=== PATIENT | male | born 1950 | race Caucasian/White ===

== ENCOUNTER 2017-04-11 06:45 | Emergency (ER) | payer MEDICARE, OTHER ==
[~2017-04-11] VITALS: Ht 162.6 cm; Wt 87.0 kg
[2017-04-11 06:47] VITALS: Ht 162.6 cm; Wt 87.0 kg
[2017-04-11] MEDS ORDERED: SOD CHLORIDE 0.9% 1,000 ML IV STA (07:15)
[2017-04-11 07:40] LABS: ABNORMAL IP MESSAGE 1; BASOPHILS % 0.3 % (0.0-2.0); EOSINOPHILS % 0.1 % (0.0-7.0); HEMATOCRIT 38.8 % (42.0-52.0); HEMOGLOBIN 12.6 g/dl (14.0-18.0); LYMPHOCYTES # 0.3 10^3/ul (0.8-2.9); LYMPHOCYTES % 2.4 % (15.0-51.0); MEAN CORPUSCULAR HEMOGLOBIN 28.4 pg (29.0-33.0); MEAN CORPUSCULAR HGB CONC 32.5 g/dl (32.0-37.0); MEAN CORPUSCULAR VOLUME 87.6 fl (82.0-101.0); MONOCYTE # 0.6 10^3/ul (0.3-0.9); NEUTROPHIL # 12.8 10^3/ul (1.6-7.5); NEUTROPHILS % 92.7 % (39.0-77.0); PLATELET COUNT 212 10^3/UL (140-415); POSITIVE DIFF @See below; RED BLOOD COUNT 4.43 10^6/ul (4.70-6.10); RED CELL DISTRIBUTION WIDTH 14.5 % (11.5-14.5); WHITE BLOOD COUNT 13.8 10^3/ul (4.8-10.8)
[2017-04-11 08:03] LABS: ALBUMIN 3.5 g/dl (3.3-4.9); ALBUMIN/GLOBULIN RATIO 1.02; BILIRUBIN,INDIRECT 0.6 mg/dl (0-1.1); BILIRUBIN,TOTAL 0.6 mg/dl (0.2-1.3); CALCIUM 8.9 mg/dl (8.4-10.2); CREATININE 1.11 mg/dl (0.61-1.24); TOTAL PROTEIN 6.9 g/dl (6.1-8.1)
[2017-04-11 08:12] LABS: POTASSIUM 2.8 mmol/L (3.5-5.1)
[2017-04-11] MEDS ORDERED: POTASSIUM CHLORIDE (SR) 20 MEQ TAB PO STA (08:19)
[2017-04-11] MEDS ORDERED: POTASSIUM CHLORIDE 20 MEQ in SOD CHLORIDE 0.9% 100 ML IVPB ONE (08:30)
[2017-04-11 09:09] LABS: ADD UMIC YES; UR ASCORBIC ACID NEGATIVE (NEGATIVE); UR BILIRUBIN (Dip) NEGATIVE (NEGATIVE); UR BLOOD (Dip) 3+ mg/dL (NEGATIVE); UR CLARITY CLOUDY (CLEAR); UR COLOR RED (YELLOW); UR GLUCOSE (Dip) NEGATIVE (NEGATIVE); UR KETONES (Dip) NEGATIVE (NEGATIVE); UR LEUKOCYTE ESTERASE (Dip) 2+ Leu/ul (NEGATIVE); UR MUCUS FEW /HPF (NONE SEEN); UR NITRITE (Dip) NEGATIVE (NEGATIVE); UR NONSQUAMOUS EPITHELIAL CELL 1 /HPF (NONE SEEN); UR RBC > 182 /HPF (0-5); UR SPECIFIC GRAVITY (Dip) 1.014 (1.003-1.030); UR SQUAMOUS EPITHELIAL CELL FEW /HPF (FEW); UR TOTAL PROTEIN (Dip) 3+ mg/dl (NEGATIVE); UR UROBILINOGEN (Dip) 1+ mg/dL (NEGATIVE)
[2017-04-11] MEDS ORDERED: CEFTRIAXONE 1 GM/50 ML (PMX) 50 ML IVPB ONE (09:30)
[2017-04-11] MEDS ORDERED: VALS1TAB80 PO (10:40)
[2017-04-11] MEDS ORDERED: AMLO-147 PO (10:40)
[2017-04-11] MEDS ORDERED: POTA20TA15 PO (10:42)
[2017-04-11] MEDS ORDERED: LEVO750T8 PO (10:42)
--- NOTE | 2017-04-11 10:46 | ERD ---
ER Documentation Chief Complaint Date/Time DATE: 04/11/17 TIME: 10:43 Chief Complaint FROM HOME C/O WEAK AND DIZZY HPI This is a 67-year-old male who states that he got up at 2 and 5 AM this morning to urinate and he had some dysuria and felt weak. He said he had subjective fever at home but it was taken. No chest pain shortness of breath no abdominal pain vomiting diarrhea no headache no focal neurological complaints such as numbness or weakness no headaches. He said his urine had a very foul odor to it as well. ROS All systems reviewed and are negative except as per history of present illness. Medications Home Meds Active Scripts Potassium Chloride* (K-Dur*) 20 Meq Tab.prt.sr, 40 MEQ PO DAILY for 7 Days, TAB.SA Prov:KAREN SMYTH DO 04/11/17 Levofloxacin* (Levofloxacin*) 750 Mg Tablet, 750 MG PO DAILY for 10 Days, TAB Prov:KAREN SMYTH DO 04/11/17 Reported Medications Valsartan-Hydrochlorothiazide (Valsartan-HCTZ) 320-12.5 Mg Tablet, 1 TAB PO DAILY, #30 TAB 04/11/17 Amlodipine Besylate* (Amlodipine Besylate*) 10 Mg Tablet, 10 MG PO DAILY, #30 TAB 04/11/17 Allergies Allergies: Coded Allergies: No Known Allergy (Unverified , 04/11/17) PMhx/Soc Medical and Surgical Hx: pt denies Surgical Hx Hx Alcohol Use: No Hx Substance Use: No Hx Tobacco Use: No Smoking Status: Never smoker FmHx Family History: No coronary disease Physical Exam Vitals Vital Signs Date Time Temp Pulse Resp B/P Pulse Ox O2 Delivery O2 Flow Rate FiO2 04/11/17 06:47 98.6 106 18 124/76 99 Physical Exam Const: Well-developed, well-nourished Head: Atraumatic, normocephalic Eyes: Normal Conjunctiva, PERRLA, EOMI, normal sclera, no nystagmus ENT: Normal External Ears, Nose and Mouth, moist mucus membranes. Neck: Full range of motion. No meningismus, no lymphadenopathy. Resp: Clear to auscultation bilaterally, no wheezing, rhonchi, rales Cardio: Tachycardia, heart rate 104, no murmurs, S1 S2 present Abd: Soft, non tender x 4, non distended. Normal bowel sounds, no guarding or rebound, no pulsitile abdominal masses or bruits Skin: No petechiae or rashes, no ecchymosis , no maculopapular rash Back: No midline or flank tenderness Ext: No cyanosis, or edema, FROM x 4, normal inspection, neurovascularly intact x 4 Neur: Awake and alert, STR 5/5 x 4, sensation intact x 4, no focal findings, cerebellum intact Psych: Normal Mood and Affect Result Diagram: 04/11/1771904/11/17719 Results 24 hrs Laboratory Tests Test 04/11/17 07:20 04/11/17 07:30 White Blood Count 13.810^3/ul Red Blood Count 4.4310^6/ul Hemoglobin 12.6g/dl Hematocrit 38.8% Mean Corpuscular Volume 87.6fl Mean Corpuscular Hemoglobin 28.4pg Mean Corpuscular Hemoglobin Concent 32.5g/dl Red Cell Distribution Width 14.5% Platelet Count 04976^3/UL Mean Platelet Volume 11.0fl Neutrophils % 92.7% Lymphocytes % 2.4% Monocytes % 4.0% Eosinophils % 0.1% Basophils % 0.3% Nucleated Red Blood Cells % 0.0/100WBC Neutrophils # 12.810^3/ul Lymphocytes # 0.310^3/ul Monocytes # 0.610^3/ul Eosinophils # 0.010^3/ul Basophils # 0.010^3/ul Nucleated Red Blood Cells # 0.010^3/ul Sodium Level 143mmol/L Potassium Level 2.8mmol/L Chloride Level 104mmol/L Carbon Dioxide Level 26mmol/L Anion Gap 16 Blood Urea Nitrogen 15mg/dl Creatinine 1.11mg/dl Glucose Level 115mg/dl Calcium Level 8.9mg/dl Total Bilirubin 0.6mg/dl Direct Bilirubin 0.00mg/dl Indirect Bilirubin 0.6mg/dl Aspartate Amino Transf (AST/SGOT) 21IU/L Alanine Aminotransferase (ALT/SGPT) 22IU/L Alkaline Phosphatase 73IU/L Total Protein 6.9g/dl Albumin 3.5g/dl Globulin 3.40g/dl Albumin/Globulin Ratio 1.02 Urine Color RED Urine Clarity CLOUDY Urine pH 7.0 Urine Specific [place] 1.014 Urine Ketones NEGATIVEmg/dL Urine Nitrite NEGATIVEmg/dL Urine Bilirubin NEGATIVEmg/dL Urine Urobilinogen 1+mg/dL Urine Leukocyte Esterase 2+Gina/ul Urine Microscopic RBC > 182/HPF Urine Microscopic WBC > 182/HPF Urine Squamous Epithelial Cells FEW/HPF Urine Mucus FEW/HPF Urine Hemoglobin 3+mg/dL Urine Glucose NEGATIVEmg/dL Urine Total Protein 3+mg/dl Current Medications Medications (Trade) Dose Ordered Sig/Filemon Route PRN Reason Start Time Stop Time Status Last Admin Dose Admin Sodium Chloride 1,000 ml @ 1,000 mls/hr Q1H STAT IV 04/11/17 07:15 04/11/17 08:14 DC 04/11/17 07:25 Potassium Chloride/Sodium Chloride (KCl/NS) 110 ml @ 55 mls/hr ONCE ONCE IVPB 04/11/17 08:30 04/11/17 10:29 DC 04/11/17 08:51 Potassium Chloride 40 meq 40 meq ONCE STAT PO 04/11/17 08:19 04/11/17 08:29 DC 04/11/17 08:36 Ceftriaxone Sodium (Rocephin) 50 ml @ 100 mls/hr ONCE ONCE IVPB 04/11/17 09:30 04/11/17 09:59 DC 04/11/17 10:18 Procedures/MDM Patient has urinary tract infection he was treated with Rocephin here urine culture sent Patient had low potassium at 2.8 was given intravenous and oral potassium. We will discharge home on Levaquin and calcium supplementation. On reevaluation the patient states he feels very well and is ready to go home. No evidence of sepsis or reason for admit Departure Diagnosis: Primary Impression: UTI (urinary tract infection) Urinary tract infection type: acute cystitis Hematuria presence: without hematuria Qualified Code: N30.00 - Acute cystitis without hematuria Additional Impression: Hypokalemia Condition: Stable Patient Instructions: Understanding Urinary Tract Infections (UTIs), Hypokalemia KAREN SMYTH DO Apr 11, 2017 10:45
[2017-04-11 10:58] VITALS: BP 148/78; PULSE 79; RESP 20
== END 2017-04-11 11:09 | disposition home or self-care (01) ==
LOC: E/R 06:45
DX: N30.00 Acute cystitis without hematuria (principal); R40.2252 Coma scale, best verbal response, oriented, at arrival to emergency department; E87.6 Hypokalemia; R40.2142 Coma scale, eyes open, spontaneous, at arrival to emergency department; R40.2362 Coma scale, best motor response, obeys commands, at arrival to emergency department
CPT/HCPCS: 36415; 80053; 81001; 85025; 87086; 96374; 99284; J0696; J3480; J7030